=== PATIENT | male | born 1955 | race Caucasian/White ===

== ENCOUNTER 2025-04-10 09:00 | Inpatient (IN) | payer OTHER, MEDICARE ==
[2025-04-10 09:57] LABS: ABSOLUTE IMMATURE GRANULOCYTES 0.08 x10^3/uL (0.0-0.031); BASOPHILS # 0.03 x10^3/uL (0.01-0.08); HEMATOCRIT 46.8 % (40.1-51.0); HEMOGLOBIN 15.7 g/dL (13.7-17.5); MCHC 33.5 g/dl (32.3-36.5); MEAN CELL VOLUME 90.2 fl (79.0-92.2); MEAN PLT VOLUME 9.4 fl (9.4-12.4); MONOCYTE # 1.09 x10^3/uL (0.30-0.82); MONOCYTE % 6.7 % (5.3-12.2); PLATELET COUNT 238 x10^3/uL (163-337); RDW 12.7 % (12.2-16.4)
[2025-04-10 10:04] LABS: INR 1.34 (0.83-1.09); PROTHROMBIN TIME (PATIENT) 14.7 SEC (9.7-13.0)
[2025-04-10 10:07] LABS: ACTIVATED PTT 30.5 SECONDS (25.2-36.5)
[2025-04-10 10:15] LABS: VENOUS PCO2 47.1 mmHg (38-52); VENOUS PH 7.415 (7.310-7.410)
[2025-04-10 10:21] LABS: CHLORIDE 102 mmol/L (98-107); SODIUM 141 mmol/L (136-145)
[2025-04-10] MEDS: LACTATED RINGERS SOLUTION 1000 ML INFUS.BAG IV ONE ×2 (10:22→13:05)
[2025-04-10 10:24] LABS: ALBUMIN 3.7 g/dl (3.4-5.0); ANION GAP 11 mmol/L (4-13); BLOOD UREA NITROGEN 28.1 mg/dL (7-18); CALCIUM 8.9 mg/dL (8.5-10.1); CO2 28 mmol/L (21-32); GLUCOSE,RANDOM 127 mg/dL (74-106)
[2025-04-10 10:27] LABS: CREATININE 1.7 mg/dL (0.55-1.3); SGOT/AST 219 U/L (15-37); SGPT/ALT 65 U/L (13-61)
[2025-04-10 10:29] LABS: BILIRUBIN,TOTAL 1.6 mg/dL (0.2-1); CHOLESTEROL 146 mg/dL (50-200); HDL CHOLESTEROL 47 mg/dL (40-60); LDL CHOLESTEROL (ONLY SJRH) 89 mg/dL (5-100); TOT PROT 7.3 g/dl (6.4-8.2)
[2025-04-10 10:30] LABS: ALK PHOS 56 U/L (45-117)
[2025-04-10 10:50] LABS: LACTIC ACID 2.1 mmol/L (0.4-2.0)
[2025-04-10] MEDS ORDERED: THIAMINE 100 MG TABLET ONE (11:02)
[2025-04-10] MEDS ORDERED: POTASSIUM CHLORIDE ORAL LIQUID 20 MEQ/15 ML ONE (11:03)
[2025-04-10] MEDS ORDERED: ACETAMINOPHEN INJECTION 100 ML ONE (11:03)
[2025-04-10] MEDS: ACETAMINOPHEN 1000 MG/100 ML BAG IVPB ONE (11:11)
[2025-04-10] MEDS: THIAMINE 100 MG TABLET PO ONE (11:12)
[2025-04-10] MEDS: POTASSIUM CHLORIDE ORAL LIQUID 20 MEQ/15 ML PO ONE (11:12)
[2025-04-10] MEDS: ASPIRIN 81 MG CHEWABLE TABLETS PO ONE (13:06)
[2025-04-10] MEDS ORDERED: ASPIRIN 81 MG CHEWABLE TABLETS ONE (13:07)
[2025-04-10 13:43] LABS: LACTIC ACID 2.2 mmol/L (0.4-2.0)
[2025-04-10 13:56] LABS: EPI CELLS 11 /uL (0-25.1); HYALINE CASTS 5 /uL (0-3.1); PH,URINE 5.5 (5.0-8.0); URINE APPEARANCE CLOUDY; URINE BACTERIA 1 /uL (0-1359); URINE BILIRUBIN NEGATIVE (NEGATIVE); URINE COLOR YELLOW; URINE GLUCOSE (UA) NEGATIVE (NEGATIVE); URINE KETONE 1+ (NEGATIVE); URINE LEUK ESTERASE NEGATIVE (NEGATIVE); URINE NITRITE NEGATIVE (NEGATIVE); URINE PROTEIN 2+ (NEGATIVE); URINE WBC 48 /uL (0-25.8)
[2025-04-10 14:06] LABS: URINE RBC 78.6 /uL (0-23.9)
[2025-04-10] MEDS ORDERED: CEFTRIAXONE 1 GM/50 ML BAG ONE (15:45)
[2025-04-10] MEDS: CEFTRIAXONE 1 GM in DEXTROSE 5%-WATER - 50 ML IVPB ONE (15:54)
[2025-04-10] MEDS: SODIUM CHLORIDE 1,000 ML IV ONE (15:54)
[2025-04-10] MEDS ORDERED: AZITHROMYCIN IVPB 500 MG/250 ML BAG IVPB ONE (16:43)
[2025-04-10] MEDS: AZITHROMYCIN IVPB 500 MG in DEXTROSE 5%-WATER - 250 ML IVPB ONE (17:12)
[2025-04-10] MEDS: LACTATED RINGERS SOLUTION 1,000 ML/1,000 ML INFUS.BAG IV SCH (17:39)
[2025-04-10 19:43] LABS: ARTERIAL BLD GAS O2 SATURATION 98.9 % (95-98); ARTERIAL BLOOD GAS BASE EXCESS 2.8 mmol/L (-2-2); ARTERIAL BLOOD GAS PO2 136.3 mmHg (80-100); ARTERIAL BLOOD GAS pH 7.486 (7.350-7.450); O2 CONTENT 1.99 % vol
[2025-04-10 19:44] LABS: ALLENS TEST POSITIVE
[2025-04-10] MEDS: hydrALAZINE HCL 20 MG/ML VIAL IVPUSH ONE (20:01)
[2025-04-10] MEDS: amLODIPine BESYLATE 5 MG TABLET (FP) PO ONE (20:01)
[2025-04-10] MEDS: LACTATED RINGERS SOLUTION 1,000 ML/1,000 ML INFUS.BAG IV STA (20:04)
[2025-04-10] MEDS: HEPARIN NA (PORCINE) 5,000 UNITS/ML 1ML VIAL SQ SCH (21:33)
[2025-04-11 06:54] LABS: HEMOGLOBIN 13.8 g/dL (13.7-17.5); MCHC 32.9 g/dl (32.3-36.5); MEAN CELL VOLUME 90.7 fl (79.0-92.2); MEAN PLT VOLUME 10.4 fl (9.4-12.4); PLATELET COUNT 222 x10^3/uL (163-337); RDW 12.7 % (12.2-16.4)
[2025-04-11 07:14] LABS: POTASSIUM 3.1 mmol/L (3.5-5.1)
[2025-04-11 07:18] LABS: CALCIUM 8.6 mg/dL (8.5-10.1)
[2025-04-11 07:19] LABS: ALBUMIN 3.3 g/dl (3.4-5.0); BLOOD UREA NITROGEN 25.3 mg/dL (7-18); MAGNESIUM 2.1 mg/dL (1.8-2.4)
[2025-04-11 07:21] LABS: CREATININE 1.3 mg/dL (0.55-1.3); PHOSPHOROUS 2.3 mg/dL (2.5-4.9)
[2025-04-11 07:23] LABS: BILIRUBIN,TOTAL 1.4 mg/dL (0.2-1); TOT PROT 6.4 g/dl (6.4-8.2)
[2025-04-11] MEDS: CEFTRIAXONE 1 GM in DEXTROSE 5%-WATER - 50 ML IVPB SCH (09:12)
[2025-04-11] MEDS: KCL 10 MEQ IVPB 10 MEQ/100 ML INFUS.BAG IVPB SCH ×2 (09:13→18:44)
[2025-04-11] MEDS ORDERED: CEFTRIAXONE 2 GM in DEXTROSE 5%-WATER 100 ML IVPB SCH (10:30)
[2025-04-11 10:36] LABS: ARTERIAL BLD GAS O2 SATURATION 89.7 % (95-98); ARTERIAL BLOOD GAS BASE EXCESS 0 mmol/L (-2-2); ARTERIAL BLOOD GAS PO2 52.9 mmHg (80-100); ARTERIAL BLOOD GAS pH 7.467 (7.350-7.450)
[2025-04-11] MEDS ORDERED: ACYCLOVIR 1000 MG (50MG/ML) VIAL IVPB SCH (11:15)
[2025-04-11] MEDS: CEFTRIAXONE 2 GM-D5W BAG 2 GM/50 ML BAG IVPB SCH (13:07)
[2025-04-11] MEDS: Acyclovir Sodium 1,000 MG in SODIUM CHLORIDE 250 ML IVPB SCH (13:39)
[2025-04-11 13:52] LABS: BF GLUCOSE (CSF ONLY) 57 mg/dL (40-70)
[2025-04-11 14:25] LABS: CSF APPEARANCE CLEAR (CLEAR); CSF COLOR COLORLESS (COLORLESS); CSF WBC 70 mm3 (0-5)
[2025-04-11] MEDS: VANCOMYCIN PREMIX 1.5 GM 1,500 MG/300 ML BAG IVPB ONE (15:40)
[2025-04-11] MEDS: AMPICILLIN - 2 GM in SODIUM CHLORIDE 100 ML IVPB SCH ×2 (15:51→23:03)
[2025-04-11] MEDS: NAPH,MB-DB/K PH,MBDB POWDER PACKET PO ONE (17:55)
[2025-04-11] MEDS ORDERED: LABETALOL HCL 20 MG/4 ML VIAL ONE (18:16)
[2025-04-11] MEDS: ACETAMINOPHEN 1000 MG/100 ML BAG IVPB PRN (18:20)
[2025-04-11] MEDS ORDERED: hydrALAZINE HCL 20 MG/ML VIAL IVPUSH PRN (18:22)
[2025-04-11] MEDS ORDERED: LABETALOL HCL 20 MG/4 ML VIAL IVPUSH PRN (18:38)
[2025-04-11] MEDS: LABETALOL HCL 20 MG/4 ML VIAL IVPUSH ONE ×2 (18:42→19:01)
[2025-04-11] MEDS: amLODIPine BESYLATE 5 MG TABLET (FP) PO SCH (19:01)
[2025-04-11] MEDS: AZITHROMYCIN IVPB 250 MG in DEXTROSE 5%-WATER - 250 ML IVPB SCH (20:07)
[2025-04-11] MEDS: LACTATED RINGERS SOLUTION 1,000 ML/1,000 ML INFUS.BAG IV SCH (20:07)
[2025-04-11] MEDS: HEPARIN NA (PORCINE) 5,000 UNITS/ML 1ML VIAL SQ SCH (21:28)
[2025-04-11] MEDS: MUPIROCIN 2% TOPICAL OINTMENT FOR DECOLONIZATION NS SCH (21:29)
[2025-04-11] MEDS: CHLORHEXIDINE GLUCONATE 4% CLEANSER FOR DECOLONIZATION TP SCH (21:29)
[2025-04-11] MEDS ORDERED: CHLORHEXIDINE GLUCONATE 4% CLEANSER FOR DECOLONIZATION TP SCH (22:00)
[2025-04-11] MEDS ORDERED: MUPIROCIN 2% TOPICAL OINTMENT FOR DECOLONIZATION NS SCH (22:00)
[2025-04-12] MEDS: MELATONIN 5 MG TABLETS PO ONE (01:08)
[2025-04-12] MEDS: Acyclovir Sodium 1,000 MG in SODIUM CHLORIDE 250 ML IVPB SCH (01:08)
[2025-04-12] MEDS: LABETALOL HCL 20 MG/4 ML VIAL IVPUSH ONE (02:05)
[2025-04-12 06:36] LABS: ABSOLUTE IMMATURE GRANULOCYTES 0.07 x10^3/uL (0.0-0.031)
[2025-04-12 06:38] LABS: BASOPHILS # 0.03 x10^3/uL (0.01-0.08); EOSINOPHIL % 3.2 % (0.8-7.0); EOSINOPHILS # 0.41 x10^3/uL (0.04-0.54); HEMATOCRIT 48.4 % (40.1-51.0); HEMOGLOBIN 15.9 g/dL (13.7-17.5); MCHC 32.9 g/dl (32.3-36.5); MEAN CELL VOLUME 92.4 fl (79.0-92.2); MONOCYTE # 0.67 x10^3/uL (0.30-0.82); MONOCYTE % 5.2 % (5.3-12.2); RDW 12.8 % (12.2-16.4)
[2025-04-12 06:53] LABS: POTASSIUM 3.7 mmol/L (3.5-5.1)
[2025-04-12 06:55] LABS: CALCIUM 8.2 mg/dL (8.5-10.1)
[2025-04-12 06:56] LABS: ALBUMIN 3.4 g/dl (3.4-5.0); BLOOD UREA NITROGEN 25.9 mg/dL (7-18)
[2025-04-12 06:59] LABS: CREATININE 1.5 mg/dL (0.55-1.3)
[2025-04-12 07:01] LABS: BILIRUBIN,TOTAL 1.2 mg/dL (0.2-1); TOT PROT 7.3 g/dl (6.4-8.2)
[2025-04-12] MEDS: hydrALAZINE HCL 20 MG/ML VIAL IVPUSH PRN (08:00)
[2025-04-12] MEDS: CEFTRIAXONE 2 GM-D5W BAG 2 GM/50 ML BAG IVPB SCH (09:58)
[2025-04-12] MEDS: SODIUM CHLORIDE 500 ML IV SCH (10:04)
[2025-04-12] MEDS: DOXYCYCLINE INJECTION 100 MG in DEXTROSE 5%-WATER 100 ML IVPB SCH (13:27)
[2025-04-12 14:03] LABS: HIV INTERPRETATION NEGATIVE (NEGATIVE)
[2025-04-12] MEDS ORDERED: dilTIAZem HCL 125 MG/25 ML - 25 ML VIAL ONE (21:40)
[2025-04-12] MEDS: dilTIAZem HCL 50 MG/10 ML - 10 ML VIAL IVPUSH ONE (21:40)
[2025-04-12] MEDS: amLODIPine BESYLATE 5 MG TABLET (FP) PO SCH (23:27)
[2025-04-13] MEDS ORDERED: dilTIAZem HCL 50 MG/10 ML - 10 ML VIAL IVPUSH PRN (02:40)
[2025-04-13] MEDS ORDERED: dilTIAZem HCL 125 MG/25 ML - 25 ML VIAL ONE (03:49)
[2025-04-13] MEDS: dilTIAZem HCL 50 MG/10 ML - 10 ML VIAL IVPUSH PRN (04:15)
[2025-04-13 07:43] LABS: HEMATOCRIT 46.5 % (40.1-51.0); HEMOGLOBIN 15.3 g/dL (13.7-17.5); MCHC 32.9 g/dl (32.3-36.5); MEAN CELL VOLUME 90.6 fl (79.0-92.2); MEAN PLT VOLUME 11.5 fl (9.4-12.4); PLATELET COUNT 171 x10^3/uL (163-337); RDW 12.8 % (12.2-16.4)
[2025-04-13 08:01] LABS: POTASSIUM 3.2 mmol/L (3.5-5.1)
[2025-04-13 08:14] LABS: CALCIUM 7.6 mg/dL (8.5-10.1); MAGNESIUM 1.7 mg/dL (1.8-2.4)
[2025-04-13 08:16] LABS: CREATININE 1.3 mg/dL (0.55-1.3)
[2025-04-13 08:17] LABS: PHOSPHOROUS 2.2 mg/dL (2.5-4.9)
[2025-04-13 08:18] LABS: BILIRUBIN,TOTAL 0.8 mg/dL (0.2-1); TOT PROT 5.7 g/dl (6.4-8.2)
[2025-04-13 08:22] LABS: ALBUMIN 2.6 g/dl (3.4-5.0)
[2025-04-13] MEDS: MAGNESIUM SULFATE IN WATER 2 GM/50 ML IVPB IVPB ONE (10:06)
[2025-04-13] MEDS: POTASSIUM CHLORIDE ORAL LIQUID 20 MEQ/15 ML PO ONE (10:06)
[2025-04-13] MEDS: NAPH,MB-DB/K PH,MBDB POWDER PACKET PO ONE (10:07)
[2025-04-13] MEDS: FUROSEMIDE 40 MG/4 ML INJECTABLE VIAL IVPUSH ONE (11:47)
[2025-04-13] MEDS: LACTATED RINGERS SOLUTION 1,000 ML/1,000 ML INFUS.BAG IV SCH (11:53)
[2025-04-14] MEDS: HALOPERIDOL LACTATE 5 MG/ML IM PRN (00:27)
[2025-04-14 06:53] LABS: HEMATOCRIT 38.8 % (40.1-51.0); HEMOGLOBIN 13.2 g/dL (13.7-17.5); MEAN CELL VOLUME 89.4 fl (79.0-92.2); MEAN PLT VOLUME 12.1 fl (9.4-12.4); PLATELET COUNT 159 x10^3/uL (163-337); RDW 12.7 % (12.2-16.4)
[2025-04-14 06:56] LABS: POTASSIUM 3.1 mmol/L (3.5-5.1)
[2025-04-14 07:02] LABS: ALBUMIN 2.6 g/dl (3.4-5.0); BLOOD UREA NITROGEN 20.8 mg/dL (7-18)
[2025-04-14 07:05] LABS: CREATININE 1.5 mg/dL (0.55-1.3)
[2025-04-14 07:07] LABS: BILIRUBIN,TOTAL 0.7 mg/dL (0.2-1); TOT PROT 5.4 g/dl (6.4-8.2)
[2025-04-14 08:09] LABS: CMV IgM < 30.0 AU/mL (0.0-29.9); RUBELLA ANTIBODY,IGM <20.0 AU/mL (0.0-19.9)
[2025-04-14] MEDS: METOPROLOL TARTRATE 25 MG TABLET (FP) PO SCH (09:18)
[2025-04-14] MEDS: amLODIPine BESYLATE 5 MG TABLET (FP) PO SCH (09:19)
[2025-04-14] MEDS: POTASSIUM CHLORIDE ORAL LIQUID 20 MEQ/15 ML PO SCH (09:19)
[2025-04-14] MEDS: NAPH,MB-DB/K PH,MBDB POWDER PACKET PO SCH (09:19)
[2025-04-14] MEDS: THIAMINE HCL 200 MG/2 ML VIAL IVPB ONE (10:16)
[2025-04-14] MEDS: LACTATED RINGERS SOLUTION 1,000 ML/1,000 ML INFUS.BAG IV SCH (12:30)
[2025-04-14] MEDS: LORazepam 2 MG/ML SDV VIAL IVPUSH PRN (12:31)
[2025-04-14 16:07] LABS: EPSTEIN BARR ANTIBODY IgM <36.0 U/mL (0.0-35.9)
[2025-04-14] MEDS: amLODIPine BESYLATE 5 MG TABLET (FP) PO ONE (18:32)
[2025-04-14] MEDS: SODIUM PHOSPHATE - 15 MM in SODIUM CHLORIDE 250 ML IVPB ONE (22:12)
[2025-04-14] MEDS: METOPROLOL TARTRATE 5 MG/5 ML VIAL IVPUSH PRN (22:13)
[2025-04-15 07:42] LABS: ABSOLUTE IMMATURE GRANULOCYTES 0.11 x10^3/uL (0.0-0.031); BASOPHILS # 0.05 x10^3/uL (0.01-0.08); EOSINOPHIL % 4.6 % (0.8-7.0); EOSINOPHILS # 0.67 x10^3/uL (0.04-0.54); HEMATOCRIT 40.3 % (40.1-51.0); HEMOGLOBIN 13.2 g/dL (13.7-17.5); MCHC 32.8 g/dl (32.3-36.5); MEAN CELL VOLUME 91.4 fl (79.0-92.2); MEAN PLT VOLUME 10.9 fl (9.4-12.4); MONOCYTE # 0.92 x10^3/uL (0.30-0.82); MONOCYTE % 6.4 % (5.3-12.2); PLATELET COUNT 237 x10^3/uL (163-337); RDW 13.2 % (12.2-16.4)
[2025-04-15 07:58] LABS: POTASSIUM 3.3 mmol/L (3.5-5.1)
[2025-04-15 08:01] LABS: ALBUMIN 2.9 g/dl (3.4-5.0); BLOOD UREA NITROGEN 20.7 mg/dL (7-18); MAGNESIUM 2.2 mg/dL (1.8-2.4)
[2025-04-15 08:05] LABS: CREATININE 1.2 mg/dL (0.55-1.3); PHOSPHOROUS 3.5 mg/dL (2.5-4.9)
[2025-04-15 08:06] LABS: BILIRUBIN,TOTAL 0.7 mg/dL (0.2-1); TOT PROT 6.2 g/dl (6.4-8.2)
[2025-04-15] MEDS: METOPROLOL TARTRATE 25 MG TABLET (FP) PO SCH (09:28)
[2025-04-15] MEDS: amLODIPine BESYLATE 10 MG TABLET (FP) PO SCH (09:28)
[2025-04-15] MEDS: KCL 10 MEQ IVPB 10 MEQ/100 ML INFUS.BAG IVPB SCH (10:14)
[2025-04-15 12:05] LABS: URINE APPEARANCE CLEAR; URINE BILIRUBIN NEGATIVE (NEGATIVE); URINE COLOR YELLOW; URINE GLUCOSE (UA) NEGATIVE (NEGATIVE); URINE KETONE 2+ (NEGATIVE); URINE LEUK ESTERASE NEGATIVE (NEGATIVE); URINE NITRITE NEGATIVE (NEGATIVE); URINE PROTEIN NEGATIVE (NEGATIVE); URINE UROBILINOGEN 0.2 mg/dL (0.2-1.0)
[2025-04-15] MEDS: METOPROLOL TARTRATE 5 MG/5 ML VIAL IVPUSH PRN (21:07)
[2025-04-16] MEDS ORDERED: LORazepam 2 MG/ML SDV VIAL IVPUSH PRN (07:40)
[2025-04-16 09:27] LABS: INR 1.18 (0.83-1.09); PROTHROMBIN TIME (PATIENT) 12.9 SEC (9.7-13.0)
[2025-04-16 09:30] LABS: ABSOLUTE IMMATURE GRANULOCYTES 0.08 x10^3/uL (0.0-0.031); BASOPHILS # 0.04 x10^3/uL (0.01-0.08); EOSINOPHIL % 8.8 % (0.8-7.0); EOSINOPHILS # 0.86 x10^3/uL (0.04-0.54); HEMATOCRIT 37.9 % (40.1-51.0); HEMOGLOBIN 12.7 g/dL (13.7-17.5); MCHC 33.5 g/dl (32.3-36.5); MEAN CELL VOLUME 91.3 fl (79.0-92.2); MEAN PLT VOLUME 9.9 fl (9.4-12.4); MONOCYTE % 9.2 % (5.3-12.2); PLATELET COUNT 311 x10^3/uL (163-337); RDW 13.3 % (12.2-16.4)
[2025-04-16 09:44] LABS: ARTERIAL BLD GAS O2 SATURATION 97.8 % (95-98); ARTERIAL BLOOD GAS BASE EXCESS 1.9 mmol/L (-2-2); ARTERIAL BLOOD GAS PO2 96.3 mmHg (80-100); ARTERIAL BLOOD GAS pH 7.474 (7.350-7.450); O2 CONTENT 1.87 % vol
[2025-04-16 09:46] LABS: ALLENS TEST POSITIVE
[2025-04-16] MEDS: DOXYCYCLINE INJECTION 100 MG in DEXTROSE 5%-WATER 100 ML IVPB SCH (09:57)
[2025-04-16 09:59] LABS: POTASSIUM 3.4 mmol/L (3.5-5.1)
[2025-04-16 10:05] LABS: CALCIUM 8.4 mg/dL (8.5-10.1)
[2025-04-16 10:06] LABS: ALBUMIN 2.6 g/dl (3.4-5.0); BLOOD UREA NITROGEN 18.9 mg/dL (7-18); MAGNESIUM 2.1 mg/dL (1.8-2.4)
[2025-04-16 10:08] LABS: CREATININE 0.9 mg/dL (0.55-1.3); PHOSPHOROUS 2.6 mg/dL (2.5-4.9)
[2025-04-16 10:09] LABS: BILIRUBIN,TOTAL 0.6 mg/dL (0.2-1); TOT PROT 5.6 g/dl (6.4-8.2)
[2025-04-16] MEDS ORDERED: LORazepam 2 MG/ML SDV VIAL ONE (10:33)
[2025-04-16] MEDS ORDERED: INSULIN ASPART SLIDING SCALE (NOVOLOG) 1 VIAL SQ ONE (10:55)
[2025-04-16] MEDS: LORazepam 2 MG/ML SDV VIAL IVPUSH ONE (11:28)
[2025-04-16] MEDS: DEXMEDETOMIDINE PREMIX 400 MCG/100 ML BAG IVPB SCH (11:29)
[2025-04-16] MEDS: KCL 10 MEQ IVPB 10 MEQ/100 ML INFUS.BAG IVPB SCH (16:30)
[2025-04-17] MEDS: HEPARIN NA (PORCINE) 5,000 UNITS/ML 1ML VIAL SQ SCH (06:23)
[2025-04-17 09:32] LABS: POTASSIUM 3.6 mmol/L (3.5-5.1)
[2025-04-17 09:34] LABS: CALCIUM 8.7 mg/dL (8.5-10.1)
[2025-04-17 09:35] LABS: ALBUMIN 2.6 g/dl (3.4-5.0); BLOOD UREA NITROGEN 18.3 mg/dL (7-18); POTASSIUM 3.6 mmol/L (3.5-5.1)
[2025-04-17 09:40] LABS: BILIRUBIN,TOTAL 0.5 mg/dL (0.2-1); TOT PROT 5.7 g/dl (6.4-8.2)
[2025-04-17 09:44] LABS: ALBUMIN 2.6 g/dl (3.4-5.0); BLOOD UREA NITROGEN 18.6 mg/dL (7-18); CALCIUM 8.5 mg/dL (8.5-10.1)
[2025-04-17 09:46] LABS: BILIRUBIN,TOTAL 0.6 mg/dL (0.2-1)
[2025-04-17 09:52] LABS: TOT PROT 5.6 g/dl (6.4-8.2)
[2025-04-17] MEDS: POTASSIUM CHLORIDE 10 MEQ in AMINO ACIDS 4.25%/D5W 1,000 ML IV SCH (10:28)
[2025-04-17 11:42] LABS: HEMOGLOBIN 14.1 g/dL (13.7-17.5)
[2025-04-17 11:44] LABS: ABSOLUTE IMMATURE GRANULOCYTES 0.08 x10^3/uL (0.0-0.031); BASOPHILS # 0.04 x10^3/uL (0.01-0.08); EOSINOPHIL % 7.1 % (0.8-7.0); EOSINOPHILS # 0.66 x10^3/uL (0.04-0.54); HEMATOCRIT 42.9 % (40.1-51.0); MCHC 32.9 g/dl (32.3-36.5); MEAN CELL VOLUME 91.7 fl (79.0-92.2); MONOCYTE % 10.8 % (5.3-12.2); RDW 13.3 % (12.2-16.4)
[2025-04-17] MEDS: LOSARTAN POTASSIUM 25 MG TABLET PO ONE (11:46)
[2025-04-17] MEDS: PANTOPRAZOLE SODIUM 40 MG VIAL IVPUSH SCH (12:45)
[2025-04-17] MEDS: LACTULOSE 20 GM/30 ML UDC (FOR ORAL USE ONLY) PO SCH (14:49)
[2025-04-17 20:07] LABS: ANTIGLOMERULAR BASEMENT MEN.AB <0.2 units (0.0-0.9)
[2025-04-18 07:03] LABS: ABSOLUTE IMMATURE GRANULOCYTES 0.12 x10^3/uL (0.0-0.031); BASOPHILS # 0.05 x10^3/uL (0.01-0.08); EOSINOPHIL % 6.3 % (0.8-7.0); HEMATOCRIT 38.1 % (40.1-51.0); HEMOGLOBIN 12.7 g/dL (13.7-17.5); MCHC 33.3 g/dl (32.3-36.5); MEAN CELL VOLUME 90.5 fl (79.0-92.2); MEAN PLT VOLUME 9.2 fl (9.4-12.4); MONOCYTE # 0.96 x10^3/uL (0.30-0.82); MONOCYTE % 10.1 % (5.3-12.2); PLATELET COUNT 318 x10^3/uL (163-337); RDW 13.2 % (12.2-16.4)
[2025-04-18 07:23] LABS: POTASSIUM 3.2 mmol/L (3.5-5.1)
[2025-04-18 07:29] LABS: ALBUMIN 2.6 g/dl (3.4-5.0); CALCIUM 8.5 mg/dL (8.5-10.1)
[2025-04-18 07:30] LABS: BLOOD UREA NITROGEN 18.5 mg/dL (7-18); MAGNESIUM 1.8 mg/dL (1.8-2.4)
[2025-04-18 07:32] LABS: CREATININE 1.2 mg/dL (0.55-1.3)
[2025-04-18 07:33] LABS: PHOSPHOROUS 3.2 mg/dL (2.5-4.9)
[2025-04-18 07:34] LABS: BILIRUBIN,TOTAL 0.4 mg/dL (0.2-1); TOT PROT 5.6 g/dl (6.4-8.2)
[2025-04-18] MEDS: KCL 10 MEQ IVPB 10 MEQ/100 ML INFUS.BAG IVPB SCH (09:38)
[2025-04-18] MEDS: POTASSIUM CHLORIDE 20 MEQ in AMINO ACIDS 4.25%/D5W 1,000 ML IV SCH (09:38)
[2025-04-18] MEDS: MULTIVITAMINS (DAILY MVI) TABLET (FP) PO SCH (09:38)
[2025-04-18] MEDS: LOSARTAN POTASSIUM 25 MG TABLET PO SCH (09:38)
[2025-04-18] MEDS: MAGNESIUM SULFATE IN WATER 2 GM/50 ML IVPB IVPB ONE (09:40)
[2025-04-18 15:08] LABS: LYME PCR CSF Negative (Negative)
[2025-04-18] MEDS: hydrALAZINE HCL 20 MG/ML VIAL IVPUSH PRN (19:47)
[2025-04-18] MEDS: AMINO ACIDS 4.25%/D5W 1,000 ML IV SCH (20:04)
[2025-04-18] MEDS: LACTULOSE 20 GM/30 ML UDC (FOR RECTAL USE ONLY) PR SCH (20:05)
[2025-04-19 06:41] LABS: BASOPHILS # 0.07 x10^3/uL (0.01-0.08); EOSINOPHIL % 1.1 % (0.8-7.0); EOSINOPHILS # 0.16 x10^3/uL (0.04-0.54); HEMATOCRIT 39.6 % (40.1-51.0); HEMOGLOBIN 13.3 g/dL (13.7-17.5); MCHC 33.6 g/dl (32.3-36.5); MEAN CELL VOLUME 89.2 fl (79.0-92.2); MEAN PLT VOLUME 8.9 fl (9.4-12.4); MONOCYTE # 1.18 x10^3/uL (0.30-0.82); MONOCYTE % 8.2 % (5.3-12.2); PLATELET COUNT 379 x10^3/uL (163-337); RDW 13.2 % (12.2-16.4)
[2025-04-19 07:02] LABS: POTASSIUM 3.4 mmol/L (3.5-5.1)
[2025-04-19 07:06] LABS: CALCIUM 8.5 mg/dL (8.5-10.1)
[2025-04-19 07:07] LABS: ALBUMIN 2.9 g/dl (3.4-5.0); BLOOD UREA NITROGEN 29.7 mg/dL (7-18)
[2025-04-19 07:10] LABS: CREATININE 2.5 mg/dL (0.55-1.3)
[2025-04-19 07:11] LABS: BILIRUBIN,TOTAL 0.7 mg/dL (0.2-1)
[2025-04-19 07:12] LABS: TOT PROT 6.3 g/dl (6.4-8.2)
[2025-04-19] MEDS ORDERED: AMINO ACIDS 4.25%/D5W 1,000 ML IV SCH (08:30)
[2025-04-19] MEDS: SODIUM CHLORIDE 500 ML IV STA (08:38)
[2025-04-19] MEDS: POTASSIUM CHLORIDE ORAL LIQUID 20 MEQ/15 ML PO ONE (08:38)
[2025-04-19] MEDS ORDERED: Acyclovir Sodium 1,000 MG in SODIUM CHLORIDE 250 ML IVPB SCH ×2 (08:40→22:00)
[2025-04-19] MEDS: PANTOPRAZOLE 40 MG TABLET PO SCH (10:41)
[2025-04-19] MEDS: LACTULOSE 20 GM/30 ML UDC (FOR ORAL USE ONLY) PO SCH (10:42)
[2025-04-19] MEDS: Acyclovir Sodium 1,000 MG in SODIUM CHLORIDE 250 ML IVPB SCH ×2 (10:43→19:21)
[2025-04-19] MEDS: SODIUM CHLORIDE 1,000 ML IV SCH ×3 (11:08→15:48)
[2025-04-19] MEDS: D5-NS + 20 MEQ KCL - 20 MEQ/1,000 ML INFUS.BAG IV SCH (11:08)
[2025-04-19] MEDS: POTASSIUM CHLORIDE 10 MEQ in AMINO ACIDS 4.25%/D5W 1,000 ML IV SCH (11:40)
[2025-04-19] MEDS: DEXMEDETOMIDINE PREMIX 400 MCG/100 ML BAG IVPB SCH (12:38)
[2025-04-19 15:50] LABS: POTASSIUM 3.8 mmol/L (3.5-5.1)
[2025-04-19 15:51] LABS: CALCIUM 8.5 mg/dL (8.5-10.1)
[2025-04-19 15:52] LABS: BLOOD UREA NITROGEN 30.5 mg/dL (7-18)
[2025-04-19 15:55] LABS: CREATININE 2.3 mg/dL (0.55-1.3)
[2025-04-19 17:22] LABS: HEPATITIS B SURF AG NON-MATERN NON-REACTIVE (NONREACTIVE)
[2025-04-19 17:51] LABS: HCV DIAGNOSTIC IN-HOUSE W/RFLX NON-REACTIVE (NONREACTIVE)
[2025-04-19] MEDS: MEROPENEM 1 GM in DEXTROSE 5%-WATER 100 ML IVPB SCH (18:32)
[2025-04-20 07:20] LABS: ABSOLUTE IMMATURE GRANULOCYTES 0.17 x10^3/uL (0.0-0.031); BASOPHILS # 0.04 x10^3/uL (0.01-0.08); EOSINOPHIL % 1.5 % (0.8-7.0); EOSINOPHILS # 0.17 x10^3/uL (0.04-0.54); HEMATOCRIT 33.7 % (40.1-51.0); HEMOGLOBIN 11.1 g/dL (13.7-17.5); MCHC 32.9 g/dl (32.3-36.5); MEAN CELL VOLUME 92.1 fl (79.0-92.2); MEAN PLT VOLUME 9.3 fl (9.4-12.4); MONOCYTE # 0.84 x10^3/uL (0.30-0.82); MONOCYTE % 7.4 % (5.3-12.2); PLATELET COUNT 309 x10^3/uL (163-337); RDW 13.3 % (12.2-16.4)
[2025-04-20 07:31] LABS: POTASSIUM 3.5 mmol/L (3.5-5.1)
[2025-04-20 07:34] LABS: CALCIUM 8.5 mg/dL (8.5-10.1)
[2025-04-20 07:35] LABS: ALBUMIN 2.5 g/dl (3.4-5.0); BLOOD UREA NITROGEN 29.8 mg/dL (7-18); MAGNESIUM 1.8 mg/dL (1.8-2.4)
[2025-04-20 07:37] LABS: PHOSPHOROUS 3.5 mg/dL (2.5-4.9)
[2025-04-20 07:38] LABS: CREATININE 1.6 mg/dL (0.55-1.3)
[2025-04-20 07:39] LABS: BILIRUBIN,TOTAL 0.5 mg/dL (0.2-1); TOT PROT 5.6 g/dl (6.4-8.2)
[2025-04-20] MEDS: ACYCLOVIR INJECTION 1,000 MG in DEXTROSE 5%-WATER - 250 ML IVPB SCH (09:02)
[2025-04-20] MEDS: LACTATED RINGERS SOLUTION 1,000 ML/1,000 ML INFUS.BAG IV SCH (10:56)
[2025-04-20] MEDS: FUROSEMIDE 40 MG/4 ML INJECTABLE VIAL IVPUSH ONE (10:59)
[2025-04-20 16:07] LABS: C-ANCA <1:20 titer (Neg:<1:20)
[2025-04-20] MEDS ORDERED: ONDANSETRON 4 MG/2 ML VIAL IVPUSH PRN (18:31)
[2025-04-20] MEDS: ONDANSETRON 4 MG/2 ML VIAL IVPUSH ONE (22:23)
[2025-04-20] MEDS: MELATONIN 5 MG TABLETS PO PRN (23:22)
[2025-04-21 07:05] LABS: CALCIUM 8.9 mg/dL (8.5-10.1)
[2025-04-21 07:06] LABS: ALBUMIN 2.7 g/dl (3.4-5.0); BLOOD UREA NITROGEN 34.9 mg/dL (7-18); MAGNESIUM 1.7 mg/dL (1.8-2.4)
[2025-04-21 07:08] LABS: ABSOLUTE IMMATURE GRANULOCYTES 0.44 x10^3/uL (0.0-0.031); BASOPHILS # 0.09 x10^3/uL (0.01-0.08); EOSINOPHIL % 0.4 % (0.8-7.0); EOSINOPHILS # 0.07 x10^3/uL (0.04-0.54); HEMATOCRIT 40.2 % (40.1-51.0); HEMOGLOBIN 13.4 g/dL (13.7-17.5); MCHC 33.3 g/dl (32.3-36.5); MEAN PLT VOLUME 9.3 fl (9.4-12.4); MONOCYTE # 1.29 x10^3/uL (0.30-0.82); MONOCYTE % 8.1 % (5.3-12.2); PLATELET COUNT 400 x10^3/uL (163-337); RDW 13.9 % (12.2-16.4)
[2025-04-21 07:09] LABS: CREATININE 2.3 mg/dL (0.55-1.3)
[2025-04-21 07:10] LABS: BILIRUBIN,TOTAL 0.8 mg/dL (0.2-1); TOT PROT 6.3 g/dl (6.4-8.2)
[2025-04-21 09:18] LABS: HERPES SIMPLEX TYPE 1 IGM SEE FILE
[2025-04-21] MEDS: NIFEdipine E.R 60 MG TABLET PO SCH (10:18)
[2025-04-21] MEDS: MAGNESIUM 2GM/50ML STERILE WATER IVPB IVPB ONE (13:40)
[2025-04-21 15:07] LABS: BABESIA MICROTI ANTIBODY IGG <1:10 (Neg:<1:10); BABESIA MICROTI ANTIBODY IGM <1:10 (Neg:<1:10)
[2025-04-21 18:06] LABS: E.chaff HME IgG Negative (Neg:<1:64)
[2025-04-21] MEDS: NIFEdipine E.R. 30 MG TABLET PO ONE (19:36)
[2025-04-22] MEDS ORDERED: METOPROLOL TARTRATE 5 MG/5 ML VIAL IVPUSH PRN (06:38)
[2025-04-22] MEDS ORDERED: ACETAMINOPHEN 1000 MG/100 ML BAG IVPB PRN (06:38)
[2025-04-22] MEDS ORDERED: MELATONIN 5 MG TABLETS PO PRN (06:38)
[2025-04-22] MEDS ORDERED: hydrALAZINE HCL 20 MG/ML VIAL IVPUSH PRN (06:38)
[2025-04-22 07:43] LABS: ABSOLUTE IMMATURE GRANULOCYTES 0.23 x10^3/uL (0.0-0.031); BASOPHILS # 0.03 x10^3/uL (0.01-0.08); EOSINOPHIL % 0.4 % (0.8-7.0); EOSINOPHILS # 0.06 x10^3/uL (0.04-0.54); HEMOGLOBIN 11.4 g/dL (13.7-17.5); MCHC 33.5 g/dl (32.3-36.5); MEAN CELL VOLUME 91.6 fl (79.0-92.2); MONOCYTE # 1.37 x10^3/uL (0.30-0.82); RDW 14.7 % (12.2-16.4)
[2025-04-22 08:02] LABS: POTASSIUM 3.7 mmol/L (3.5-5.1)
[2025-04-22 08:04] LABS: CALCIUM 9.3 mg/dL (8.5-10.1)
[2025-04-22 08:05] LABS: ALBUMIN 2.6 g/dl (3.4-5.0); BLOOD UREA NITROGEN 45.1 mg/dL (7-18)
[2025-04-22 08:06] LABS: MAGNESIUM 2.2 mg/dL (1.8-2.4)
[2025-04-22 08:08] LABS: CREATININE 3.9 mg/dL (0.55-1.3); PHOSPHOROUS 5.8 mg/dL (2.5-4.9)
[2025-04-22 08:09] LABS: BILIRUBIN,TOTAL 0.8 mg/dL (0.2-1); TOT PROT 5.8 g/dl (6.4-8.2)
[2025-04-22] MEDS: NIFEdipine E.R. 90 MG TABLET PO SCH (10:09)
[2025-04-22] MEDS: LACTULOSE 20 GM/30 ML UDC (FOR ORAL USE ONLY) PO PRN (10:09)
[2025-04-22] MEDS: METOPROLOL TARTRATE 25 MG TABLET (FP) PO SCH (10:09)
[2025-04-22] MEDS: PANTOPRAZOLE 40 MG TABLET PO SCH (10:09)
[2025-04-22] MEDS: MULTIVITAMINS (DAILY MVI) TABLET (FP) PO SCH (10:09)
[2025-04-22] MEDS: DOXYCYCLINE INJECTION 100 MG in DEXTROSE 5%-WATER 100 ML IVPB SCH (10:10)
[2025-04-22] MEDS: APIXABAN 5 MG TABLET PO SCH (13:30)
[2025-04-22] MEDS ORDERED: HEPARIN NA (PORCINE) 5,000 UNITS/ML 1ML VIAL SQ SCH (14:00)
[2025-04-22] MEDS: MEROPENEM 1 GM in DEXTROSE 5%-WATER 100 ML IVPB SCH (17:28)
[2025-04-22] MEDS: HALOPERIDOL LACTATE 5 MG/ML IM ONE (19:35)
[2025-04-22 22:31] VITALS: BMI 34.8
[2025-04-23 06:48] LABS: POTASSIUM 3.3 mmol/L (3.5-5.1)
[2025-04-23 06:53] LABS: ALBUMIN 2.7 g/dl (3.4-5.0); BLOOD UREA NITROGEN 34.8 mg/dL (7-18); CALCIUM 8.8 mg/dL (8.5-10.1)
[2025-04-23 06:54] LABS: MAGNESIUM 1.9 mg/dL (1.8-2.4)
[2025-04-23 06:57] LABS: BILIRUBIN,TOTAL 0.7 mg/dL (0.2-1); CREATININE 1.8 mg/dL (0.55-1.3); PHOSPHOROUS 4.1 mg/dL (2.5-4.9); TOT PROT 6.2 g/dl (6.4-8.2)
[2025-04-23 08:55] LABS: ABSOLUTE IMMATURE GRANULOCYTES 0.18 x10^3/uL (0.0-0.031); BASOPHILS # 0.06 x10^3/uL (0.01-0.08); EOSINOPHIL % 0.8 % (0.8-7.0); EOSINOPHILS # 0.11 x10^3/uL (0.04-0.54); HEMATOCRIT 37.1 % (40.1-51.0); HEMOGLOBIN 12.2 g/dL (13.7-17.5); MCHC 32.9 g/dl (32.3-36.5); MEAN CELL VOLUME 93.2 fl (79.0-92.2); MEAN PLT VOLUME 9.2 fl (9.4-12.4); MONOCYTE # 1.44 x10^3/uL (0.30-0.82); MONOCYTE % 9.9 % (5.3-12.2); PLATELET COUNT 314 x10^3/uL (163-337); RDW 15.5 % (12.2-16.4)
[2025-04-23 09:04] LABS: POTASSIUM 3.2 mmol/L (3.5-5.1)
[2025-04-23 09:05] LABS: CALCIUM 8.9 mg/dL (8.5-10.1)
[2025-04-23 09:06] LABS: BLOOD UREA NITROGEN 32.6 mg/dL (7-18); MAGNESIUM 1.9 mg/dL (1.8-2.4)
[2025-04-23 09:09] LABS: CREATININE 1.6 mg/dL (0.55-1.3); PHOSPHOROUS 4.1 mg/dL (2.5-4.9)
[2025-04-23] MEDS: POTASSIUM CHLORIDE ORAL LIQUID 20 MEQ/15 ML PO ONE (13:12)
[2025-04-23] MEDS: FUROSEMIDE 40 MG/4 ML INJECTABLE VIAL IVPUSH ONE (14:48)
[2025-04-23 18:39] VITALS: BP 105/98; PULSE 95; TEMP 98.2
[2025-04-23 21:31] VITALS: RESP 19
== END 2025-04-23 21:40 | disposition short-term general hospital (02) | DRG 871 ==
LOC: JER 09:00 → JERBED 14:22 → J4W 18:46 → J4S 04-11 12:36 → J2W 04-11 15:34 → JICU 04-16 18:31 → J4W 04-21 20:41 → JICU 04-21 20:45 → J4W 04-21 22:06 → J4S 04-22 22:25
PROVIDERS: ADMIT Student in an Organized Health Care Education/Training Program; ATTEND Internal Medicine
PROC: 009U3ZZ Drainage of Spinal Canal, Percutaneous Approach (ICD-10-PCS; principal; 2025-04-11)
DX: A41.9 Sepsis, unspecified organism (principal); G04.90 Encephalitis and encephalomyelitis, unspecified; G93.41 Metabolic encephalopathy; J69.0 Pneumonitis due to inhalation of food and vomit; A87.9 Viral meningitis, unspecified; I24.89 Other forms of acute ischemic heart disease; E87.20 Acidosis, unspecified; N17.9 Acute kidney failure, unspecified; M62.82 Rhabdomyolysis; I82.412 Acute embolism and thrombosis of left femoral vein; E72.20 Disorder of urea cycle metabolism, unspecified; R44.3 Hallucinations, unspecified; I16.0 Hypertensive urgency; N18.9 Chronic kidney disease, unspecified; E87.6 Hypokalemia; R74.01 Elevation of levels of liver transaminase levels; E66.811 Obesity, class 1; I48.0 Paroxysmal atrial fibrillation; E83.39 Other disorders of phosphorus metabolism; E83.42 Hypomagnesemia; D64.9 Anemia, unspecified; E86.0 Dehydration; R33.9 Retention of urine, unspecified
CPT/HCPCS: 0241U-QW; 36415; 36600; 70450-TC; 70544-TC; 70551-TC; 70553-TC; 71045-TC-FY; 71250-TC; 72125-TC; 76775-TC; 80048; 80053; 80061; 80307; 81003; 82140; 82248; 82550; 82553; 82607; 82728; 82803; 82945; 82962; 83036; 83516; 83520; 83605; 83735; 83880; 84100; 84146; 84157; 84443; 84484; 85025; 85027; 85610; 85651; 85730; 86038; 86140; 86160; 86225; 86235; 86256; 86617; 86618; 86645; 86665; 86666; 86694; 86704; 86705; 86708; 86709; 86735; 86753; 86762; 86765; 86780; 86787; 86788; 86789; 86803; 86850; 86900; 86901; 87040; 87070; 87086; 87205; 87207; 87340; 87389; 87476; 87517; 87529; 87798; 87899; 93005; 93010; 93306-TC; 93971-TC; 95816; 97116-GP; 97161-GP; 99285-25